=== PATIENT | male | born 1960 | race Asian ===

== ENCOUNTER 2018-03-29 07:35 | Day surgery (SDC) | payer OTHER ==
[~2018-03-29 07:35] MED LIST: CEFAZOLIN 1 GM INJ; CEFAZOLIN 2 GM/50 ML (PMX) 50 ML IVPB; DEXAMETHASONE 4 MG/ML 1 ML INJ; ONDANSETRON 4 MG INJ; ROPIVACAINE 0.5 % 30 ML VIAL
[2018-03-29] MEDS: SOD CHLORIDE 0.9% 1,000 ML IV (08:55)
[2018-03-29] MEDS ORDERED: FENTAnyl 50 MCG/ML VIAL (09:21)
[2018-03-29] MEDS ORDERED: METOCLOPRAMIDE 10 MG INJ (09:22)
[2018-03-29] MEDS ORDERED: MIDAZOLAM 1 MG/ML 2 ML INJ (09:22)
[2018-03-29] MEDS ORDERED: BUPIVACAINE 0.25% (MPF) 30 ML INJ (10:13)
[2018-03-29] MEDS ORDERED: PROPOFOL 20 ML (10:24)
[2018-03-29] MEDS ORDERED: LIDOCAINE 100 MG SYRINGE (10:24)
[2018-03-29] MEDS ORDERED: HYDROmorphONE 1 MG/5 ML IV SYRINGE IV ×3 (10:30)
[2018-03-29] MEDS ORDERED: DIPHENHYDRAMINE 50 MG INJ IV (10:30)
[2018-03-29] MEDS ORDERED: FENTAnyl 50 MCG/ML VIAL IV ×2 (10:30)
[2018-03-29] MEDS ORDERED: LEVALBUTEROL (NEB) 1.25 MG/0.5 ML AMP HHN (10:30)
[2018-03-29] MEDS ORDERED: ONDANSETRON 4 MG INJ IV (10:30)
[2018-03-29] MEDS ORDERED: IPRATROPIUM (NEB) 0.5 MG/2.5 ML AMP HHN (10:30)
[2018-03-29] MEDS ORDERED: MEPERIDINE 25 MG INJ IV (10:30)
[2018-03-29] MEDS ORDERED: hydrALAzine 20 MG INJ IV (10:30)
[2018-03-29] MEDS ORDERED: LABETALOL HCL 20MG INJ IV (10:30)
[2018-03-29] MEDS ORDERED: KETOROLAC 30 MG INJ IV (10:30)
[2018-03-29] MEDS: POLYMYXIN/BACITRACIN 1L IRRIG (10:53)
[2018-03-29] MEDS: HYDROCODONE/APAP (5/325) TAB PO (12:05)
== END 2018-03-29 13:40 | disposition home or self-care (01) ==
LOC: SDS 07:35
DX: K40.30 Unilateral inguinal hernia, with obstruction, without gangrene, not specified as recurrent (principal)
CPT/HCPCS: 49507